=== PATIENT | female | born 1965 | race Caucasian/White ===

== ENCOUNTER 2022-03-10 13:18 | Observation (INO) | payer BC ==
[~2022-03-10] VITALS: Ht 172.7 cm; Wt 95.2 kg
[~2022-03-10 13:18] MED LIST: Ativan1 MG PO; QUET200 PO; QUETIAPINE FUMA25 MG PO
== END 2022-03-13 14:10 ==
LOC: ER 13:18 → EOR 13:19
PROVIDERS: ADMIT Student in an Organized Health Care Education/Training Program
DX: F20.9 Schizophrenia, unspecified (principal); F12.10 Cannabis abuse, uncomplicated
CPT/HCPCS: A9270